=== PATIENT | male | born 1965 | race Caucasian/White ===

== ENCOUNTER 2017-11-05 00:38 | Inpatient (IN) | payer OTHER ==
[2017-11-05] VITALS (8 sets, daily range): BP systolic 99–167; BP diastolic 56–92; PULSE 70–86; RESP 16–22; TEMP 97.6–98.8; O2SAT 96–99
[~2017-11-05] VITALS: Ht 165.1 cm; Wt 105.0 kg
[2017-11-05] MEDS ORDERED: LIDOCAINE 1%/EPINEPHrine 1:100,000 SOLN 20 ML VIAL INFIL ONE (01:00)
[2017-11-05] MEDS ORDERED: LIDOCAINE 1%/EPINEPHrine 1:100,000 SOLN 30 ML VIAL ONE (01:01)
[2017-11-05 01:15] LABS: AUTOMATED NEUTROPHIL # 7.3 TH/MM3 (1.8-7.7); BASOPHIL # 0.1 TH/MM3 (0-0.2); BASOPHIL % 0.6 % (0.0-2.0); EOSINOPHIL # 0.2 TH/MM3 (0-0.4); EOSINOPHIL % 2.2 % (0.0-4.0); HEMATOCRIT 41.4 % (39.0-51.0); HEMOGLOBIN 14.3 GM/DL (13.0-17.0); LYMPH % 15.4 % (9.0-44.0); LYMPHOCYTE # 1.5 TH/MM3 (1.0-4.8); MEAN CELL VOLUME 89.1 FL (80.0-100.0); MEAN CORPUSCULAR HEMOGLOBIN 30.8 PG (27.0-34.0); MEAN CORPUSCULAR HGB CONC 34.6 % (32.0-36.0); MONO % 5.7 % (0.0-8.0); MONOCYTE # 0.5 TH/MM3 (0-0.9); NEUT % 76.1 % (16.0-70.0); PLATELET COUNT 290 TH/MM3 (150-450); RED BLOOD COUNT 4.65 MIL/MM3 (4.50-5.90); RED CELL DISTRIBUTION WIDTH 13.1 % (11.6-17.2); WHITE BLOOD COUNT 9.6 TH/MM3 (4.0-11.0)
[2017-11-05 01:40] LABS: CALCIUM 8.6 MG/DL (8.5-10.1); CREATININE 1.01 MG/DL (0.60-1.30)
[2017-11-05] MEDS ORDERED: IOHEXOL 350 MG/ML 10 ML VIAL (for RAD DIAG) IVCONTRAST ONE (02:19)
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
[2017-11-05] MEDS ORDERED: PROMETHAZINE INJ 25 MG/ML VIAL IM ONE (03:15)
[2017-11-05] MEDS ORDERED: MORPHINE SULFATE 4 MG/ML INJ IV PUSH ONE (03:15)
[2017-11-05] MEDS ORDERED: MORPHINE SULFATE 2 MG/ML SYRINGE IV PUSH PRN (05:30)
[2017-11-05] MEDS: NS + KCL 40 MEQ INJ 1,000 ML IV SCH ×2 (05:49→17:29)
[2017-11-05] MEDS ORDERED: MORPHINE SULFATE 4 MG/ML INJ IV PUSH PRN ×2 (06:00→09:00)
[2017-11-05] MEDS ORDERED: SODIUM CHLORIDE 0.9% FLUSH 10 ML FLUSH IV FLUSH PRN (06:30)
[2017-11-05] MEDS ORDERED: ACETAMINOPHEN 325 MG TAB PO PRN (06:30)
[2017-11-05] MEDS ORDERED: POTASSIUM CHLORIDE 20 MEQ CONTROLLED RELEASE TAB PO ONE (06:30)
[2017-11-05] MEDS ORDERED: ENALAPRILAT 1.25 MG/ML VIAL IV PUSH PRN (06:30)
[2017-11-05] MEDS ORDERED: METHOCARBAMOL 500 MG TAB PO SCH (06:30)
[2017-11-05] MEDS: RESP: ALBUTEROL 2.5 MG/IPRATROPIUM 0.5 MG NEB (SCH) NEB ×4 (08:02→20:51)
[2017-11-05] MEDS: LIDOCAINE HCL 5% PATCH TD SCH (08:35)
[2017-11-05] MEDS: DOCUSATE SODIUM 50 MG/SENNA 8.6 MG TAB PO SCH ×2 (08:36→19:21)
[2017-11-05] MEDS: ACETAMINOPHEN 1000 MG/100 ML 100 ML IV SCH ×3 (08:36→17:30)
[2017-11-05] MEDS: IBUPROFEN 800 MG TAB PO SCH ×2 (12:13→17:29)
[2017-11-05] MEDS: POTASSIUM CHLORIDE 20 MEQ CONTROLLED RELEASE TAB PO SCH (13:25)
[2017-11-05] MEDS: DIAZEPAM 2 MG TAB PO SCH ×2 (13:25→22:00)
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
[2017-11-05] MEDS ORDERED: REMOVE OLD PATCH T-DERMAL SCH (21:00)
[2017-11-06 00:21] VITALS: BP 163/65; PULSE 69; RESP 18; TEMP 97.9; O2SAT 97
[2017-11-06] MEDS: ACETAMINOPHEN 1000 MG/100 ML 100 ML IV SCH (00:43)
[2017-11-06] MEDS: DIAZEPAM 2 MG TAB PO SCH ×2 (06:00→16:41)
[2017-11-06] MEDS: IBUPROFEN 800 MG TAB PO SCH ×4 (06:01→16:41)
[2017-11-06 08:00] VITALS: BP 161/93; PULSE 68; RESP 18; TEMP 97.3; O2SAT 98
[2017-11-06] MEDS: RESP: ALBUTEROL 2.5 MG/IPRATROPIUM 0.5 MG NEB (SCH) NEB ×3 (08:06→16:13)
[2017-11-06 08:09] VITALS: O2SAT 96
[2017-11-06] MEDS: LIDOCAINE HCL 5% PATCH TD SCH (10:26)
[2017-11-06] MEDS: POTASSIUM CHLORIDE 20 MEQ CONTROLLED RELEASE TAB PO SCH (10:27)
[2017-11-06] MEDS: DOCUSATE SODIUM 50 MG/SENNA 8.6 MG TAB PO SCH (10:27)
[2017-11-06] MEDS ORDERED: PERI PO (11:10)
[2017-11-06] MEDS ORDERED: PERC10TA27 PO (11:10)
[2017-11-06] MEDS ORDERED: IBUP1TAB7 PO (11:10)
[2017-11-06 11:21] LABS: AUTOMATED NEUTROPHIL # 5.9 TH/MM3 (1.8-7.7); BASOPHIL % 0.3 % (0.0-2.0); EOSINOPHIL # 0.2 TH/MM3 (0-0.4); EOSINOPHIL % 2.3 % (0.0-4.0); HEMATOCRIT 38.5 % (39.0-51.0); HEMOGLOBIN 13.2 GM/DL (13.0-17.0); LYMPH % 13.7 % (9.0-44.0); MEAN CELL VOLUME 91.4 FL (80.0-100.0); MEAN CORPUSCULAR HEMOGLOBIN 31.4 PG (27.0-34.0); MEAN CORPUSCULAR HGB CONC 34.3 % (32.0-36.0); MEAN PLATELET VOLUME 7.5 FL (7.0-11.0); MONO % 4.7 % (0.0-8.0); MONOCYTE # 0.4 TH/MM3 (0-0.9); PLATELET COUNT 228 TH/MM3 (150-450); RED BLOOD COUNT 4.21 MIL/MM3 (4.50-5.90); RED CELL DISTRIBUTION WIDTH 13.3 % (11.6-17.2); WHITE BLOOD COUNT 7.5 TH/MM3 (4.0-11.0)
[2017-11-06 11:52] LABS: BICARBONATE 23.9 MEQ/L (21.0-32.0); CALCIUM 8.1 MG/DL (8.5-10.1); CREATININE 0.83 MG/DL (0.60-1.30)
[2017-11-06 12:00] VITALS: BP 177/92; PULSE 63; RESP 18; TEMP 98.2; O2SAT 99
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
[2017-11-06 16:00] VITALS: BP 162/91; PULSE 73; RESP 18; TEMP 98.2; O2SAT 99
== END 2017-11-06 18:43 | disposition home or self-care (01) | DRG 964 ==
LOC: NEPE 00:38 → NEDA 05:25 → N06B 08:26
PROVIDERS: ADMIT Surgery; ATTEND Surgery
PROC: 0HQ1XZZ Repair Face Skin, External Approach (ICD-10-PCS; principal; 2017-11-05)
DX: S27.321A Contusion of lung, unilateral, initial encounter (principal); S22.41XA Multiple fractures of ribs, right side, initial encounter for closed fracture; S37.011A Minor contusion of right kidney, initial encounter; S36.892A Contusion of other intra-abdominal organs, initial encounter; S01.511A Laceration without foreign body of lip, initial encounter; E87.6 Hypokalemia; Y92.410 Unspecified street and highway as the place of occurrence of the external cause; F10.120 Alcohol abuse with intoxication, uncomplicated; Y90.7 Blood alcohol level of 200-239 mg/100 ml; V58.5XXA Driver of pick-up truck or van injured in noncollision transport accident in traffic accident, initial encounter
CPT/HCPCS: 12051; 70450; 71045; 71260; 72125; 74177; 80048; 80307; 84132; 85025; 94640; 94664; 94667; 94668; 96372; 96374; J0131; J2270; J2550; J3480; Q9967